=== PATIENT | female | born 1965 | race Caucasian/White ===

== ENCOUNTER 2017-09-19 14:45 | Emergency (ER) | payer BC, OTHER ==
[2017-09-19 15:11] VITALS: BP 121/73; PULSE 69; RESP 17; TEMP 97.8
--- NOTE | 2017-09-19 16:07 | ED ---
General Adult HPI - General Chief complaint: Fall Stated complaint: Fell Time Seen by Provider: 09/19/17 15:38 Source: patient, RN notes reviewed Mode of arrival: ambulatory Limitations: no limitations - History of Present Illness Initial comments: 52-year-old female presents to the emergency department with a chief complaint of left-sided rib pain. She states she tripped and fell on Friday hitting the left side of her ribs. She states she continuous pain to touch pain to deep breath. She states that just feels sore. She was concerned due to the continued discomfort so she thought that she should be seen. There is been no other symptoms associated with this. Patient denies any recent fever, chills, back pain, abdominal pain, nausea vomiting, numbness or tingling, dysuria or hematuria, constipation or diarrhea, headaches or visual changes, or any other current symptoms. - Related Data Previous Rx's Medication Instructions Recorded traMADol HCl [Ultram] 50 mg PO Q6H PRN #20 tab 09/19/17 Allergies Allergy/AdvReac Type Severity Reaction Status Date / Time No Known Allergies Allergy Verified 09/19/17 15:08 Review of Systems ROS Statement: Those systems with pertinent positive or pertinent negative responses have been documented in the HPI. ROS Other: All systems not noted in ROS Statement are negative. Past Medical History Past Medical History: No Reported History History of Any Multi-Drug Resistant Organisms: None Reported Past Surgical History: Appendectomy Additional Past Surgical History / Comment(s): lap band Past Psychological History: No Psychological Hx Reported Smoking Status: Never smoker Past Alcohol Use History: Rare Past Drug Use History: None Reported General Exam Limitations: no limitations General appearance: alert, in no apparent distress Head exam: Present: atraumatic, normocephalic, normal inspection Eye exam: Present: normal appearance, PERRL, EOMI. Absent: scleral icterus, conjunctival injection, periorbital swelling ENT exam: Present: normal exam, mucous membranes moist Neck exam: Present: normal inspection. Absent: tenderness, meningismus, lymphadenopathy Respiratory exam: Present: normal lung sounds bilaterally, chest wall tenderness (Left upper chest). Absent: respiratory distress, wheezes, rales, rhonchi, stridor Cardiovascular Exam: Present: regular rate, normal rhythm, normal heart sounds. Absent: systolic murmur, diastolic murmur, rubs, gallop, clicks GI/Abdominal exam: Present: soft, normal bowel sounds. Absent: distended, tenderness, guarding, rebound, rigid Neurological exam: Present: alert, oriented X3 Psychiatric exam: Present: normal affect, normal mood Skin exam: Present: warm, dry, intact, normal color. Absent: rash Course Vital Signs 09/19/17 15:08 Temperature 97.8 F Pulse Rate 69 Respiratory 17 Rate Blood Pressure 121/73 O2 Sat by Pulse 100 Oximetry Medical Decision Making - Medical Decision Making 52-year-old female presents for left-sided chest pain after trip and fall. At this time imaging has been reviewed. This time there is no acute rib fracture. Lung appears to be intact. At this time we discussed left rib contusion. We discussed follow-up we discussed return parameters all questions. Patient family stated they understood and all on questions have been answered. They will be discharged. - Radiology Data Radiology results: report reviewed, image reviewed Disposition Clinical Impression: Fall, Contusion of rib on left side Disposition: HOME SELF-CARE Condition: Stable Instructions: Rib Contusion (ED) Additional Instructions: Please use medication as discussed. Please follow up with family doctor if symptoms have not improved over the next two days. Please return to the emergency room if your symptoms increase or worsen or for any other concerns. Prescriptions: traMADol HCl [Ultram] 50 mg PO Q6H PRN #20 tab PRN Reason: Pain Referrals: Sindhu Powell MD [Primary Care Provider] - 1-2 days Time of Disposition: 16:11
--- NOTE | 2017-09-19 16:09 | XR ---
EXAMINATION TYPE: XR ribs LT w pa chest xray DATE OF EXAM: 09/19/2017 COMPARISON: NONE HISTORY: Fall with left-sided rib pain TECHNIQUE: Single frontal view of the chest, frontal views of the left ribs, and oblique views of the left ribs were obtained. FINDINGS: There is no evidence of focal consolidation, pleural effusion or pneumothorax within the ch est. Cardia mediastinal silhouette is within normal limits. Mild multilevel degenerative changes of t he thoracic spine are seen. There is partial visualization of the gastric lap band and balloon insuff lation device. The ribs are intact with no displaced fracture identified. IMPRESSION: No acute cardiopulmonary process or displaced acute left rib fracture.
== END 2017-09-19 16:33 | disposition home or self-care (01) ==
LOC: EC 14:45
DX: S20.212A Contusion of left front wall of thorax, initial encounter (principal); W01.10XA Fall on same level from slipping, tripping and stumbling with subsequent striking against unspecified object, initial encounter
CPT/HCPCS: 99283

== ENCOUNTER → 2020-10-10 | Outpatient (CLI) | payer BC ==
--- NOTE | 2020-10-10 16:48 | BD ---
EXAMINATION TYPE: Axial Bone Density DATE OF EXAM: 10/10/2020 COMPARISON: NONE CLINICAL HISTORY: Postmenopausal screening Height: 64.5 IN Weight: 242 LBS RISK FACTORS HISTORY OF: Family History of Osteoporosis: YES (M) GRANDMOTHER Active: MODERATE Postmenopausal woman: AGE 46 MEDICATIONS: EXAM MEASUREMENTS: Bone mineral densitometry was performed using the [employer] System. Bone mineral density as measured about the Lumbar spine is: ----- L1-L4(G/cm2): 1.182 T Score Values are as follows: ----- L2: -0.6 ----- L3: 0.5 ----- L4: 0.2 ----- L1-L4: 0.0 Bone mineral density BASELINE Bone mineral density about the R hip (g/cm2): 0.970 Bone mineral density about the L hip (g/cm2): 0.949 T Score values are as follows: -----R Neck: -0.5 -----L Neck: -0.6 -----R Total: -0.3 -----L Total: -0.3 Bone mineral density BASELINE IMPRESSION: Normal (Values between +1 and -1 indicate normal bone mass). Consider repeating this study in 5 year s or sooner if there is some new clinical indication. NOTE: T-SCORE=SD OF THE YOUNG ADULT MEAN.
--- NOTE | 2020-10-11 14:48 | MM ---
Reason for exam: screening (asymptomatic). Last mammogram was performed 6 years and 8 months ago. History: Patient is postmenopausal. Physical Findings: A clinical breast exam by your physician is recommended on an annual basis and results should be correlated with mammographic findings. MG Screening Mammo w CAD Bilateral CC and MLO view(s) were taken. Prior study comparison: February 07, 2014, bilateral MG screening mammo w CAD. May 16, 2006, bilateral screening mammogram w/CAD. The breast tissue is heterogeneously dense. This may lower the sensitivity of mammography. Stable benign calcifications. There is no discrete abnormality. No significant changes when compared with prior studies. ASSESSMENT: Benign, BI-RAD 2 RECOMMENDATION: Routine screening mammogram of both breasts in 1 year.
== END | disposition home or self-care (01) ==
LOC: RADMAMWWP 09:05
PROVIDERS: ATTEND Family Medicine
DX: Z12.31 Encounter for screening mammogram for malignant neoplasm of breast (principal); Z13.820 Encounter for screening for osteoporosis; Z78.0 Asymptomatic menopausal state
CPT/HCPCS: 77067; 77080

== ENCOUNTER → 2022-08-15 | Outpatient (CLI) | payer BC ==
--- NOTE | 2022-08-16 06:38 | MM ---
Reason for Exam: Screening (asymptomatic). Last mammogram was performed 1 year(s) and 11 month(s) ago. Patient History: Menarche at age 9. First Full-Term at age 19. Postmenopausal. Prior Study Comparison: 05/16/2006 Bilateral Screening Mammogram, [facility]. 02/07/2014 Bilateral Screening Mammogram, [facility]. 10/10/2020 Bilateral Screening Mammogram, [facility]. Tissue Density: There are scattered fibroglandular densities. Findings: Analyzed By CAD. There are a few scattered and loosely grouped tiny benign-appearing round calcifications bilaterally. There is no suspicious new group of microcalcifications or new suspicious mass in either breast. Overall Assessment: Benign, BI-RAD 2 Management: Screening Mammogram of both breasts in 1 year. A clinical breast exam by your physician is recommended on an annual basis and results should be correlated with mammographic findings. Electronically signed and approved by: Pablo Mayfield M.D.
== END | disposition home or self-care (01) ==
LOC: RADMAMWWP 15:14
PROVIDERS: ATTEND Family Medicine
DX: Z12.31 Encounter for screening mammogram for malignant neoplasm of breast (principal); Z78.0 Asymptomatic menopausal state
CPT/HCPCS: 77067

== ENCOUNTER → 2024-04-28 | Outpatient (CLI) | payer BC ==
--- NOTE | 2024-04-29 08:26 | MM ---
Reason for Exam: Screening (asymptomatic). Last mammogram was performed 1 year(s) and 8 month(s) ago. Patient History: Menarche at age 9. First Full-Term at age 19. Postmenopausal. Risk Values: Elda 5 year model risk: 1.5%. NCI Lifetime model risk: 7.0%. Prior Study Comparison: 02/07/2014 Bilateral Screening Mammogram, [facility]. 10/10/2020 Bilateral Screening Mammogram, [facility]. 08/15/2022 Bilateral MG screening mammo w CAD, [facility]. Tissue Density: The breasts are heterogeneously dense, which may obscure small masses. Findings: Analyzed By CAD. No dominant mass or architectural distortion. Small loosely grouped calcifications in the right breast. Spot magnification view recommended. Overall Assessment: Incomplete: need additional imaging evaluation, BI-RAD 0 Management: Diagnostic Mammogram of the right breast. . Patient should continue monthly self-breast exams. A clinical breast exam by your physician is recommended on an annual basis. This exam should not preclude additional follow-up of suspicious palpable abnormalities. Note on Elda scores and lifetime risk: 1. A Elda score greater than 3% is considered moderate risk. If this is the case, consider specialist referral to assess eligibility for a risk reducing agent. 2. If overall lifetime risk for the development of breast cancer is 20% or higher, the patient may qualify for future screening with alternating mammogram and breast MRI. [facility], , 04/29/2024 8:23 AM. Electronically signed and approved by: Mauricio Rae M.D. Radiologis
== END | disposition home or self-care (01) ==
LOC: RADMAMWWP 14:33
PROVIDERS: ATTEND Family Medicine
CPT/HCPCS: 77067

== ENCOUNTER → 2024-05-04 | Outpatient (CLI) | payer BC ==
--- NOTE | 2024-05-04 08:35 | MM ---
Reason for Exam: Additional evaluation requested from abnormal screening. Last screening mammogram was performed less than 1 month ago. Patient History: Menarche at age 9. First Full-Term at age 19. Postmenopausal. Risk Values: Elda 5 year model risk: 1.5%. NCI Lifetime model risk: 7.0%. Prior Study Comparison: 02/07/2014 Bilateral Screening Mammogram, [facility]. 10/10/2020 Bilateral Screening Mammogram, [facility]. 08/15/2022 Bilateral MG screening mammo w CAD, [facility]. 04/28/2024 Bilateral MG screening mammo w CAD, [facility]. Tissue Density: Right: There are scattered areas of fibroglandular density. Findings: Analyzed By CAD. Skin calcifications are noted without suspicious cluster. Overall Assessment: Benign, BI-RAD 2 Management: Screening Mammogram of both breasts in 1 year. . Results were given to the patient verbally at the time of exam. Patient should continue monthly self-breast exams. A clinical breast exam by your physician is recommended on an annual basis. This exam should not preclude additional follow-up of suspicious palpable abnormalities. Note on Elda scores and lifetime risk: 1. A Elda score greater than 3% is considered moderate risk. If this is the case, consider specialist referral to assess eligibility for a risk reducing agent. 2. If overall lifetime risk for the development of breast cancer is 20% or higher, the patient may qualify for future screening with alternating mammogram and breast MRI. [facility], , 05/04/2024 8:32 AM. Electronically signed and approved by: Hernesto Thomas M.D. Radiologis
== END | disposition home or self-care (01) ==
LOC: RADMAMWWP 07:57
PROVIDERS: ATTEND Family Medicine
CPT/HCPCS: 77061; 77065